=== PATIENT | female | born 1940 | race Caucasian/White ===

== ENCOUNTER → 2024-04-10 11:42 | Outpatient (REF) | payer OTHER, SELFPAY | LOC: HWWDC 11:42 | PROVIDERS: ATTENDING PHYSICIAN Nurse Practitioner | DX: Z12.31 Encounter for screening mammogram for malignant neoplasm of breast (principal) | CPT/HCPCS: 77063; 77067 ==

== ENCOUNTER → 2024-09-07 09:58 | Outpatient (REF) | payer OTHER, SELFPAY | LOC: HWRCS 09:58 | PROVIDERS: ATTENDING PHYSICIAN Nurse Practitioner | DX: R01.1 Cardiac murmur, unspecified (principal) | CPT/HCPCS: 93306 ==

== ENCOUNTER → 2024-09-28 09:23 | Outpatient (REF) | payer OTHER, SELFPAY | LOC: HWRAD 09:23 | PROVIDERS: ATTENDING PHYSICIAN Nurse Practitioner | DX: K76.89 Other specified diseases of liver (principal) | CPT/HCPCS: 76705 ==

== ENCOUNTER → 2024-10-20 08:37 | Outpatient (REF) | payer OTHER, SELFPAY | LOC: RAD 08:37 | PROVIDERS: ATTENDING PHYSICIAN Nurse Practitioner | DX: K76.89 Other specified diseases of liver (principal) | CPT/HCPCS: 74170; Q9967 ==

== ENCOUNTER → 2024-12-28 12:54 | Outpatient (REF) | payer OTHER, SELFPAY | LOC: HWRAD 12:54 | PROVIDERS: ATTENDING PHYSICIAN Student in an Organized Health Care Education/Training Program | DX: M25.512 Pain in left shoulder (principal) | CPT/HCPCS: 73030 ==

== ENCOUNTER → 2025-01-01 13:45 | Outpatient (REF) | payer OTHER, SELFPAY | LOC: HWRAD 13:45 | PROVIDERS: ATTENDING PHYSICIAN Student in an Organized Health Care Education/Training Program | DX: R63.4 Abnormal weight loss (principal) | CPT/HCPCS: 76856 ==

== ENCOUNTER → 2025-01-18 11:16 | Outpatient (REF) | payer OTHER, SELFPAY | LOC: HWRAD 11:16 | PROVIDERS: ATTENDING PHYSICIAN Student in an Organized Health Care Education/Training Program | DX: E05.90 Thyrotoxicosis, unspecified without thyrotoxic crisis or storm (principal) | CPT/HCPCS: 76536 ==

== ENCOUNTER 2025-01-25 16:44 | Emergency (ER) | payer OTHER, SELFPAY ==
[2025-01-25 16:47] VITALS: BP 195/76
--- NOTE | 2025-01-25 18:15 | ED.GENMED ---
History of Present Illness
General
Chief Complaint: Fall
Source: patient
Exam Limitations: none
Time Seen by Provider: 01/25/25 17:54
Nursing documentation reviewed up to this point in time: agreed with
History of Present Illness
History of Present Illness:
84-year-old female past ministry of stroke, hypertension hyperlipidemia presenting to the emergency department after tripping and falling at the grocery store hit her forehead which caused a laceration did not lose consciousness she is not on blood
thinners. Denies additional injuries no loss of consciousness no numbness or weakness. Not sure when her last tetanus shot was.
Past History
Past History
ED Past Medical History: HTN, Hypercholesterolemia and Other (Diverticulitis); Negative IDDM or NIDDM
ED Past Surgical History: Cholecystectomy, Gynecological (Uterine suspention), Orthopedic and Urological; Negative Cardiac
Social History
Tobacco: Non-smoker
Alcohol: None
Drug: None
Personal:
Living: alone
Employment: Retired
Family History
Family History: CAD
Review of Systems
Review of Systems
Allergies reviewed?: Yes
All Other Systems: ROS reviewed and negative except as documented in HPI and ROS
Phy Exam
Physical Exam
Physical Exam:
GENERAL: Alert , in no apparent distress
EYE: pupils equal and reactive
NECK: Supple, no significant adenopathy.
ENT: Laceration to the right medial eyebrow region 3 cm in total length no foreign body seen o/p clr, mmm.
CARDIAC: Regular rate and rhythm .
LUNGS: Clear breath sounds bilaterally, no acute respiratory distress, no wheezes/rales/rhonchi
ABDOMEN: Soft, without focal tenderness, no r/g, no cvat
NEUROLOGICAL: Alert and oriented, no focal neuro deficits
SKIN: Warm and dry, skin intact.
MUSCULOSKELETAL: No edema, well perfused.
PSYCH: Normal and appropriate interaction.
Course
Orders/Labs/Results
Orders:
Orders
01/25/25 17:00
CT Head W/o Iv Contrast Urgent
Comment:
Reason For Exam: fall, head injury
01/25/25 19:17
Tetanus/Diphth/Acelpertussis [Adacel] 0.5 ml IM .ONCE ONE
Vital Signs
Initial and Last Documented VS:
Initial Vital Signs
Temp Pulse Resp BP Pulse Ox
98.2 F 100 18 195/76 100
01/25/25 16:47 01/25/25 16:47 01/25/25 16:47 01/25/25 16:47 01/25/25 16:47
Last Documented Vital Signs
Temp Pulse Resp BP Pulse Ox
98.2 F 100 18 195/76 100
01/25/25 16:47 01/25/25 16:47 01/25/25 16:47 01/25/25 16:47 01/25/25 18:16
Procedures
Laceration Closure
Right Medial Eye brow:
Status of Wound: clean
Size of Wound in cm: 3
Description of Wound Edges: sharp
Preparation: cleaned with saline
Anesthesia: 1% Lidocaine
Revision/Debridement: routine- no revision and irrigate-direct pressure
Wound exploration: explored to base- no FB and no tendon involvement
Type of Closure: single layer closure and interrupted sutures
Skin Closure Material: 5-0 prolene
Number of sutures: 7
MDM/Problems Addressed
MDM/Problems Addressed:
84-year-old female presenting to the emergency department today after trip and fall at the grocery store hitting her right forehead no loss of consciousness not on blood thinners. CT scan here without emergent findings. No neck pain no numbness
weakness walking steady gait at this point. Laceration was cleaned thoroughly and closed and given updated tetanus shot. Return precautions given. Otherwise advised for suture removal in 7 days.
*Pulse Oximetry
SaO2: 100
Oxygen Mode of Delivery: Room air
Patient hypoxic: no (100)
*Critical Care Note
Total Time (30-74mins, 75-104mins- exclusive of procedures): Not Applicable
ED Attending Note
-
Portions of this chart may have been created with voice recognition software.� Occasional wrong word or��sound alike� substitutions may have occurred due to the inherent limitations of voice recognition software.
Discharge Plan
Departure
Patient Disposition: Home (Routine Discharge)
Date of Disposition: 01/25/25
Time of Disposition: 19:50
Patient with high blood pressure during this ER visit?: No
Condition: Good
Covid-19: Not Applicable
Discharge Problem:
Fall, Forehead laceration
Instructions: Laceration Repair With Stitches (DC)
Prescriptions:
No Action
docusate sodium 100 MG capsule
100 mg PO HS
atorvastatin 40 MG tablet
40 mg PO QPM
lisinopril 20 MG tablet
40 mg PO HS
aspirin 81 MG tablet,delayed release (DR/EC)
81 mg PO HS
multivitamin with folic acid [Tab-A-Jacques] 1 TABLET tablet
1 tab PO DAILY
nifedipine 60 MG tablet extended release
60 mg PO DAILY Qty: 90 3RF
Referrals:
NONE,* [Active, Internal Medicine]
Activity Restrictions/Additional Instructions:
You came to the emergency department today with concerns of a laceration to your right eyebrow. Here you had a normal head CT and you were given an updated tetanus shot. You had 7 nondissolving stitches placed. Please follow-up in 7 days for
suture removal. Return for any worsening, new or concerning symptoms.
Interventions
Interventions:
*Risk Screen - Suicide Last Done: 01/25/25 16:48
Discharge Date and Time
Print Language: SWEDISH
[2025-01-25 20:00] VITALS: BP 119/64
[2025-01-25] MEDS: ADACEL 0.5 ML IM (20:00)
== END 2025-01-25 20:21 | disposition home or self-care (01) ==
LOC: EMR 16:44
PROVIDERS: EMERGENCY PHYSICIAN Emergency Medicine; FAMILY PHYSICIAN Student in an Organized Health Care Education/Training Program
DX: S01.81XA Laceration without foreign body of other part of head, initial encounter (principal); W01.10XA Fall on same level from slipping, tripping and stumbling with subsequent striking against unspecified object, initial encounter; I10 Essential (primary) hypertension; E78.00 Pure hypercholesterolemia, unspecified; Z90.49 Acquired absence of other specified parts of digestive tract; Z23 Encounter for immunization
CPT/HCPCS: 90471; 99284; 12013; 70450; 90715